=== PATIENT | female | born 1955 | race Caucasian/White ===

== ENCOUNTER → 2023-04-30 14:39 | Outpatient (REF) | payer MEDICARE, SELFPAY | LOC: WDC 14:39 | PROVIDERS: ATTENDING PHYSICIAN Family Medicine | DX: Z12.31 Encounter for screening mammogram for malignant neoplasm of breast (principal) | CPT/HCPCS: 77063; 77067 ==

== ENCOUNTER → 2023-05-14 10:20 | Outpatient (REF) | payer MEDICARE, SELFPAY | LOC: RAD 10:20 | PROVIDERS: ATTENDING PHYSICIAN Internal Medicine Rheumatology; FAMILY PHYSICIAN Family Medicine | DX: M81.0 Age-related osteoporosis without current pathological fracture (principal) | CPT/HCPCS: 77080 ==

== ENCOUNTER → 2024-01-26 15:19 | Outpatient (REF) | payer MEDICARE, SELFPAY | LOC: RAD 15:19 | PROVIDERS: ATTENDING PHYSICIAN Family Medicine | DX: I10 Essential (primary) hypertension (principal) | CPT/HCPCS: 71250 ==

== ENCOUNTER → 2024-05-09 07:39 | Outpatient (REF) | payer MEDICARE, SELFPAY | LOC: HWRAD 07:39 | PROVIDERS: ATTENDING PHYSICIAN Internal Medicine Critical Care Medicine; FAMILY PHYSICIAN Family Medicine; PRIMARYCARE PHYSICIAN Family Medicine | DX: R91.1 Solitary pulmonary nodule (principal) | CPT/HCPCS: 71250 ==

== ENCOUNTER → 2024-09-11 10:39 | Outpatient (REF) | payer MEDICARE, SELFPAY | LOC: RAD 10:39 | PROVIDERS: ATTENDING PHYSICIAN Internal Medicine Critical Care Medicine; FAMILY PHYSICIAN Family Medicine | DX: R91.1 Solitary pulmonary nodule (principal) | CPT/HCPCS: 71250 ==

== ENCOUNTER → 2024-10-05 13:44 | Outpatient (REF) | payer MEDICARE, SELFPAY | LOC: RAD 13:44 | PROVIDERS: ATTENDING PHYSICIAN Family Medicine | DX: M54.2 Cervicalgia (principal); G89.29 Other chronic pain; M54.9 Dorsalgia, unspecified; E11.29 Type 2 diabetes mellitus with other diabetic kidney complication; M54.50 Low back pain, unspecified | CPT/HCPCS: 72050; 72072; 72110 ==

== ENCOUNTER → 2024-11-29 13:44 | Outpatient (REF) | payer MEDICARE, SELFPAY | LOC: WDC 13:44 | PROVIDERS: ATTENDING PHYSICIAN Family Medicine | DX: Z12.31 Encounter for screening mammogram for malignant neoplasm of breast (principal) | CPT/HCPCS: 77063; 77067 ==

== ENCOUNTER 2024-12-04 06:23 | Day surgery (SDC) | payer MEDICARE, SELFPAY ==
[2024-12-04 10:32] LABS: Glucose - Point of Care 146 mg/dl (70-99)
== END 2024-12-04 12:05 | disposition home or self-care (01) ==
LOC: GI 06:23
PROVIDERS: ATTENDING PHYSICIAN Internal Medicine Gastroenterology
DX: Z12.11 Encounter for screening for malignant neoplasm of colon (principal); K64.9 Unspecified hemorrhoids; K51.00 Ulcerative (chronic) pancolitis without complications; K63.5 Polyp of colon; K63.89 Other specified diseases of intestine; K51.214 Ulcerative (chronic) proctitis with abscess
CPT/HCPCS: 45385; 45381; 45380; 82962; 88305

== ENCOUNTER → 2024-12-29 08:48 | Outpatient (REF) | payer MEDICARE, SELFPAY | LOC: WDC 08:48 | PROVIDERS: ATTENDING PHYSICIAN Family Medicine | DX: R92.8 Other abnormal and inconclusive findings on diagnostic imaging of breast (principal) | CPT/HCPCS: 76642 ==